=== PATIENT | female | born 1940 | race Caucasian/White ===

== ENCOUNTER → 2018-08-07 14:26 | Outpatient (CLI) | payer MEDICARE, SELFPAY ==
[2017-07-27 13:19] VITALS: BMI 30.2
[2018-08-07 17:49] LABS: Thyroid Stim Hormone (TSH) 2.93 uIU/mL (0.358-3.74)
== END ==
PROVIDERS: Family Provider Family Medicine; PCP Family Medicine; Visit Provider Family Medicine
DX: E03.9 Hypothyroidism, unspecified (principal)
CPT/HCPCS: 36415; 84436; 84443

== ENCOUNTER 2019-07-08 08:59 | Day surgery (SDC) | payer MEDICARE, SELFPAY ==
--- NOTE | 2019-07-02 14:01 | EKG12_ITS ---
Test Reason : PRE-OP Blood Pressure : / mmHG Vent. Rate : 071 BPM Atrial Rate : 071 BPM P-R Int : 238 ms QRS Dur : 140 ms QT Int : 444 ms P-R-T Axes : 048 -39 126 degrees QTc Int : 482 ms Sinus rhythm with 1st degree A-V block Left axis deviation Left bundle branch block Abnormal ECG Confirmed by STEPHAN PADRON, ALEXA ([id number]), multimedia editor LORRIE SINGH ([id number]) on 07/04/2019 11:22:21 AM Referred By: Remy Snider Confirmed By:ALEXA ROTHMAN MD
[2019-07-02 15:37] LABS: Hematocrit 47.8 % (37-47); Hemoglobin 15.6 g/dL (12.0-15.0); Mean Corp Hgb Conc 32.6 g/dL (32-36); Mean Corpuscular Hgb 30.2 pg (27.0-32.0); Mean Corpuscular Volume 92.6 fL (81-99); Mean Platelet Vol. 8.7 fl (6.2-12.0); Platelet Count 214 K/mm3 (150-450); RBC Distribution Width CV 13.9 % (11.6-14.6); RBC Distribution Width SD 47.3 fl (35.1-43.9); Red Blood Count 5.16 M/mm3 (4.2-5.4); White Blood Count 7.6 K/mm3 (4.4-11.0)
[2019-07-02 16:06] LABS: Anion Gap 8 (5-15); BUN 13 mg/dL (7-18); BUN/Creat Ratio 16.9 RATIO (10-20); Calcium,Total 8.7 mg/dL (8.5-10.1); Chloride 104 mmol/L (98-107); Creatinine, Serum 0.77 mg/dL (0.55-1.02); EST Glomerular Filtration Rate 77 mL/min (>60); Est Glom Filt Rate - Afr Amer 93 mL/min (>60); Glucose 85 mg/dL (74-106); Potassium 3.1 mmol/L (3.5-5.1); Sodium Level 136 mmol/L (136-145)
[2019-07-08] VITALS (15 sets, daily range): BP systolic 95–155; BP diastolic 61–97; PULSE 60–92; RESP 16–18; TEMP 36.2–37.1; O2SAT 87–98; BMI 28.5
--- NOTE | 2019-07-08 | LES_PTH ---
PATIENT: SACHI BOYKIN [place] [facility] [place][id number] AGE/SX: 79/F ROOM: RE07/08/[address]: Dr. Remy Snider MD : [id number] BED: DIS: 07/08/2019 SPEC #: [id number] RECD: 07/08/19 10:22 STATUS: ROBBY FERMÍN #: [id number] NORMAN: 07/08/19 00:[address]: Remy Snider DEPT: SURGICAL PATHOLOGY RECD BY: Narcisa Tena ENTERED: 07/08/19 11:02 SP TYPE: Lesion OTHR DR: Dr. Saritha Rudd MD Tissues: Skin of external ear, NOS Procedures: Frozen Section (charge) Frozen Section Add'l ([facility]) Surgery Specimen Level IV HEADER OPERATION: Excision ear lesion with frozen section and local flap reconstruction PRE-OP DIAGNOSIS: Squamous cell carcinoma TISSUE SUBMITTED: Right ear lesion FROZEN SECTION DIAGNOSIS Right ear lesion, biopsy: Negative for residual carcinoma. Margins are free. KAROLINA:yodit 07/08/19 Case has been reviewed in consultation with Dr. Coello who concurs with the above diagnosis. IDC:AM MICROSCOPIC DIAGNOSIS Right ear lesion, biopsy: Focal ulceration with associated acute and chronic inflammation and granulation. Cicatrix with associated reactive epithelial atypia. Solar elastosis and mild actinic change. No evidence of carcinoma. See comment. AM:yodit 07/09/19 COMMENT The specimen contains fragments of cartilage with no significant pathologic change. Case has been reviewed in consultation with Dr. Cleveland who concurs with the above diagnosis. IDC:KAROLINA MICROSCOPIC DESCRIPTION Slides are reviewed. GROSS DESCRIPTION Received fresh for frozen section diagnosis labeled with the patient's name is a specimen designated right ear lesion. The specimen consists of a wedge-shaped piece of rouse-white skin measuring 2.5 x 1.5 x 0.9 cm. The specimen is oriented by sutures as follows: long stitch - posterior at 9 o'clock, short stitch - superior at 12 o'clock. The specimen is inked as follows: anterior tip - green, superior margin - black, inferior margin - blue. No obvious skin lesion is identified. Sections reveal cartilage in the center. The entire specimen is submitted in three cassettes as follows: 1 - anterior margin, 2 & 3 - rest of the specimen. / KAROLINA:yodit 07/08/19 TC:5 CPT: 68918, 64335, 02267 x2
[2019-07-08] MEDS: Lactated Ringers 1,000 ML 100 ML IV (09:31)
[2019-07-08 09:43] LABS: Potassium 4.6 mmol/L (3.5-5.1)
--- NOTE | 2019-07-08 10:00 | DCINST_ITS ---
You will use the following diet at home:: No restrictions, Regular Discharge Activity: Return to Normal Activity Additional Activity Instructions:: Remove dressing on 07/09/19 and discard. Apply antibiotic ointment twice a day. May shower and get the incision wet 07/10/19. Allergies/Adverse Reactions: Allergies codeine Allergy (Unknown, Verified 07/01/19 13:19) Unknown Iodinated Contrast Media [Iodinated Contrast- Oral and IV Dye] Allergy (Unknown, Verified 07/01/19 13:19) Unknown penicillin G Allergy (Unknown, Verified 07/01/19 13:19) Unknown Sulfa (Sulfonamide Antibiotics) Allergy (Unknown, Verified 07/01/19 13:19) Unknown Medications to take at Discharge levothyroxine 125 mcg capsule 125 mcg PO DAILY cap 07/27/17 umeclidinium 62.5 mcg-vilanterol 25 mcg/actuation powdr for inhalation 1 inh INHALATION Q24H 07/27/17 Primary Care Physician: Saritha Rudd MD [Primary Care Provider] - Test Results: Test results from this visit will be discussed in further detail at your follow- up appointment, if applicable.
[2019-07-08] MEDS: Bacitracin 500 UNITS/GM PACKET (10:24)
--- NOTE | 2019-07-08 10:40 | OP.PCM_ITS ---
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 Intermediate repair Type of Anesthesia:: General Anesthesiologist: Kashif Fuller Specimen's removed: right ear lesion Estimated Blood Loss (mL): minimal Description of Procedure: The patient was taken to the operating room on 07/08/2019. She was placed in the supine position on the operating table. She was given sufficient general anes thesia. The right ear was prepped and draped sterilely. 1% lidocaine with epinephrine was injected into the skin surrounding the lesion. I then marked out a 5mm margin superiorly and inferiorly. A large wedge was taken from the middle third of the ear. This was performed with an 11 blade and both the medial and lateral skin were taken full-thickness with an 11 blade. Next, this was sent for frozen section. I then closed the cartilaginous layer with interrupted 4-0 Vicryl. Skin was closed with interrupted and running, locking 6-0 nylon. Frozen section came back as negative for carcinoma. Bacitracin and a Orange dressing were then applied. The patient was then awoken and brought to recovery room in stable condition. blood loss minimal, replacement none. Sponge, needle, instrument count were correct at the end of procedure.
[2019-07-08] MEDS: Ipratropium/Albuterol Sulfate 3 ML AMPUL.NEB INHALATION (12:16)
== END 2019-07-08 14:11 | disposition home or self-care (01) ==
LOC: SDC 09:00 → AC 09:01
PROVIDERS: Anesthesiology; Family Provider Family Medicine; PCP Family Medicine; Referring Provider Otolaryngology; Visit Provider Otolaryngology
PROC: (CPT 11640; principal; 2019-07-08 10:25)
DX: C44.222 Squamous cell carcinoma of skin of right ear and external auricular canal (principal); L90.5 Scar conditions and fibrosis of skin; L57.8 Other skin changes due to chronic exposure to nonionizing radiation; Z85.51 Personal history of malignant neoplasm of bladder; Z87.891 Personal history of nicotine dependence
CPT/HCPCS: 11640; 12051; 36415; 80048; 84132; 85027; 88305; 88331; 88332; 93005; 94640; J7120; J2405

== ENCOUNTER → 2019-09-13 12:41 | Outpatient (CLI) | payer MEDICARE, SELFPAY ==
[2019-07-08 09:23] VITALS: BMI 28.5
--- NOTE | 2019-09-13 12:44 | RAD_ITS ---
STUDY: X-RAY - CERVICAL SPINE REASON FOR EXAM: Female, 79 years old. cervicalgia TECHNIQUE: 5 view(s) of the cervical spine were obtained. COMPARISON: None FINDINGS: There are degenerative changes of the anterior atlantoaxial articulation. Normal odontoid process. Normal cervical lordosis. There is diffuse demineralization of the cervical spine. There is multi-level degenerative disc disease with multilevel disc space narrowing. Normal visualized intervertebral neuroforamina. The soft tissue structures are unremarkable. There is no demonstrated fracture of the cervical spine. RAD/Cerv Spine 4 or 5 Views IMPRESSION: Diffuse osteopenia along with mild spondylosis. No acute fracture or subluxation. Electronically Signed: Colette Del Rio MD at 1:16 EDT , Service support ,
--- NOTE | 2019-09-13 12:44 | RAD_ITS ---
STUDY: X-RAY - LEFT ELBOW REASON FOR EXAM: Female, 79 years old. tried to push up out of bed, now left elbow pain x 1 week TECHNIQUE: 3 view(s) of the elbow. COMPARISON: None. FINDINGS: There is demineralization of the visualized humerus, radius and ulna. Normal radiocapitellar and ulnotrochlear articulations. No joint effusion. The soft tissue structures are unremarkable. There is no demonstrated fracture. RAD/Elbow min 3 Views IMPRESSION: Diffuse osteopenia otherwise normal x-ray examination of the elbow. Electronically Signed: Colette Del Rio MD at 1:16 EDT , Service support ,
== END ==
PROVIDERS: PCP Family Medicine; Referring Provider Family Medicine; Visit Provider Family Medicine
DX: M25.522 Pain in left elbow (principal); M54.2 Cervicalgia
CPT/HCPCS: 72050; 73080

== ENCOUNTER → 2020-11-16 16:08 | Outpatient (CLI) | payer MEDICARE, SELFPAY ==
[2019-07-08 09:23] VITALS: BMI 28.5
[2020-11-16 18:25] LABS: Anion Gap 7 (5-15); BUN 8 mg/dL (7-18); BUN/Creat Ratio 10.7 RATIO (10-20); Chloride 105 mmol/L (98-107); Creatinine, Serum 0.75 mg/dL (0.55-1.02); EST Glomerular Filtration Rate 79 mL/min (>60); Est Glom Filt Rate - Afr Amer 95 mL/min (>60); Glucose 92 mg/dL (74-106); Potassium 3.5 mmol/L (3.5-5.1); Sodium Level 138 mmol/L (136-145); T4 Total, Thyroxin 14.4 ug/dL (4.8-13.9); Thyroid Stim Hormone (TSH) 2.98 uIU/mL (0.358-3.74)
== END ==
PROVIDERS: PCP Family Medicine; Visit Provider Family Medicine
DX: E03.9 Hypothyroidism, unspecified (principal); E87.6 Hypokalemia
CPT/HCPCS: 36415; 80048; 84436; 84443